=== PATIENT | male | born 1955 | race Caucasian/White ===

== ENCOUNTER 2017-04-02 19:42 | Emergency (ER) | payer OTHER ==
--- NOTE | 2017-04-02 21:06 | ED NURSING NOTES ---
Clinical Report - Nurses [facility] [address] [place] [address] 04/02/2017 19:47 Patient: LYNNETTE TURNER TRIAGE Triage time 1950. Acuity: LEVEL 4. Chief Complaint: BACK PAIN and (pt has chronic back pain, pain is worse today since awoke. shooting pain down rt side from buttocks to knee . Pt was supposed to have cortisone shot on Monday, but there was a problem with order so he didn;t get it. state he has back surg scheduled for 7 weeks from now). 19:52. --20:09 Prachi Deluna R.N. 19:52 04/02/17. BP: 132/80. HR: 60. RR: 18. O2 saturation: 95% on room air. Temp: 98.4 F. Pain level now: 06/01. --20:09 Prachi Deluna R.N. Weight: 99.3 kg stated. Height/Length: 70 inches Per Patient. BMI: 31.4. --20:03 Prachi Deluna R.N. Medications AmLODIPine Besylate Oral, daily. Atenolol Oral 100 mg, daily. Gabapentin Oral (Tablet 600 mg) 1 tablet, 3x a day. Glipizide Oral 5 mg, 2x a day. Lisinopril Oral 20 mg, daily. MetFORMIN HCl Oral (Tablet 1000 mg) 1 tablet, 2x a day. OxyCODONE HCl Oral 15mg , 2 tabs BID as needed, last dose 1600. --20:06 Prachi Deluna R.N. Allergies Actose. --20:04 Prachi Deluna R.N. History Arrived by private vehicle. Historian: patient. Accompanied by son. Primary physician (Regan). SOCIAL HX: Never smoker. No alcohol use or drug use. --20:09 Prachi Deluna R.N. SURGERY HX: Back surgery. Laminectomy at L3, L4 and L5. Right knee surgery. Neck surgery. Discectomy at C6-C7. ( trigger finger rt hand 03/01/17). --20:11 Prachi Deluna R.N. PAST MEDICAL HX: Diabetes mellitus. Hypertension. --20:12 Prachi Deluna R.N. Interventions ID band on patient. To treatment room. --20:09 Prachi Deluna R.N. PHYSICAL ASSESSMENT 19:52. Ambulatory to room. Patient gowned. GENERAL / NEURO / PSYCH: Alert. Oriented X 4. Appears in pain. RESPIRATORY: Respirations not labored. CVS: Capillary refill less than 2 seconds. GI / : Abdomen soft. EXTREMITIES: Limited ROM present. BACK: Limited ROM of the back. Soft tissue tenderness. --20:13 Prachi Deluna R.N. EXTREMITIES: ( walks slowly, uses cane). --20:13 Prachi Deluna R.N. NURSING PROGRESS NOTES 19:52. Cold pack applied. Patient gowned. Head of bed elevated. Reassurance given. Patient identifiers checked. Call light placed in reach. Side rails up. Bed placed in lowest position. Patient ready for evaluation- chart flagged. --20:12 Prachi Deluna R.N. 20:55 04/02/2017 Phenergan (Promethazine HCl) IM 25 mg given. Given in the left ventral gluteus. Sedative warning given to the patient. --21:06 Prachi Deluna R.N. 20:56 04/02/2017 Toradol (Ketorolac Tromethamine) IM 60 mg given. Given in the left ventral gluteus. --21:06 Prachi Deluna R.N. 20:50. ( FSBS= 145, ERPA notified). --21:41 Prachi Deluna R.N. 21:56. ( Pt given IM meds, declined narcotics. ERMD notified. additional meds ordered). --21:47 Prachi Deluna R.N. DISPOSITION / DISCHARGE 21:15. Condition at departure: stable. No learning barriers present. Discharge instructions provided and reviewed with the patient. Reviewed medication(s) (cont home meds). Reviewed referrals (f/u with back doctor). Patient verbalized understanding. Written instructions provided in Malaysian. The patient was discharged home and accompanied by family. He left the Emergency Department on crutches and via private vehicle. Driving (son). MAL COMA SCORE: Mal Coma Scale: 15- eyes open spontaneously (4); best verbal response- oriented x 4 (5); best motor response- obeys commands (6). --21:44 Prachi Deluna R.N. 21:15 04/02/17. BP: 137/74. HR: 60. RR: 18. O2 saturation: 97% on room air. Temp: deferred. Pain level now: 03/01. --21:44 Prachi Deluna R.N. Locked/Released at 04/02/2017 21:48 by Prcahi Deluna R.N.
--- NOTE | 2017-04-02 21:06 | ED CLINICAL REPORT ---
Clinical Report - Physicians/Mid Levels [facility] [address] [place] [address] 04/02/2017 19:47 Patient: LYNNETTE TURNER Time Seen: 21:50 Apr 02 2017. Arrived- By private vehicle. Historian- patient. HISTORY OF PRESENT ILLNESS Chief Complaint: BACK PAIN. Onset was today. It is described as being in the area of the lower lumbar spine. The quality is noted to be "pain" and similar to prior episodes. No bladder dysfunction or bowel dysfunction. Additional history - patient with long history of low back pain, with previous laminectomy, complaining of pain over the last 24 hours. Patienton Monday, the was supposed to havean injection to his low back, howeverthere was some misunderstanding, and he is now scheduled for next Monday, and is scheduled for possible second laminectomy within the next 2 months. Patient with long-standing narcotic use. He has narcotics, however reports, his symptoms are worsening over the last 24 hours. The same pain he has had, low back, at times radiates to r. le. NO urinary sx. NO new fall/ trauma. No abd pain. No h/o aneurysm. Similar symptoms previously: Recent medical care: The patient was seen recently in the office. REVIEW OF SYSTEMS No fever, chills, vaginal discharge, sore throat or cough. No abdominal pain or vomiting. All systems otherwise negative, except as recorded above. PAST HISTORY Has had back injury. He has had prior back pain. Problems: Hypertension. Diabetes Mellitus. Additional Surgeries: Back Surgery. Knee Surgery. Neck Surgery. Medications: AmLODIPine Besylate Oral, daily. Atenolol Oral 100 mg, daily. Gabapentin Oral (Tablet 600 mg) 1 tablet, 3x a day. Glipizide Oral 5 mg, 2x a day. Lisinopril Oral 20 mg, daily. MetFORMIN HCl Oral (Tablet 1000 mg) 1 tablet, 2x a day. OxyCODONE HCl Oral 15mg , 2 tabs BID as needed, last dose 1600. Allergies: Actose. SOCIAL HISTORY Never smoker. No alcohol use or drug use. PHYSICAL EXAM Appearance: Alert. CVS: Heart sounds normal. Pulses normal. Respiratory: No respiratory distress. Breath sounds normal. Abdomen: No mass. Obese. No abdominal tenderness. Back: Vertebral point tenderness. Soft tissue tenderness. Skin: Skin warm. Normal skin color. Neuro: Oriented X 3. Mood/affect normal. No motor deficit. Straight leg raising: negative on the right and negative on the left. PROGRESS AND PROCEDURES Course of Care: Patient with the same pain he has had previously, , began diabetes no new red flags.Pt ambulatory. Inquiring about toradol, which I find reasonable. Pt with good f/u and has meds at home. No new sx, only mild exacerbation of chronic pain. NO acute concern for cauda equina/ spinal cord abscess or mass. There are no risks for spinal epidural abscess or hematoma as patient is without any risk factors such as IVDA or evidence of active infection, no midline tenderness to percussion. Hence I do not feel emergent imaging with an MRI is indicated. However I did discuss with the patient that if these symptoms develop, or if the pain does not resolve an MRI may need to be done outpatient, or in the ED if symptoms worsen acutely or new onset of the above mentioned symptoms develop. 04/02/2017 21:15 BP: 137/74. HR: 60. RR: 18. O2 saturation: 97%. Pain level now: 5/10. Patient is stable. Physical exam findings are improved. Symptoms better. Patient/family counseled. Disposition: Discharged. Condition: good. CLINICAL IMPRESSION Chronic back pain. Diabetes. Hypertension. INSTRUCTIONS Apply ice. No driving or operating machinery. Limit lifting. Your Current Medications: CONTINUE TAKING THE FOLLOWING MEDICATIONS: AmLODIPine Besylate Oral : daily. Atenolol Oral : 100 mg daily. Gabapentin Oral : Tablet 600 mg, 1 tablet 3x a day. Glipizide Oral : 5 mg 2x a day. Lisinopril Oral : 20 mg daily. MetFORMIN HCl Oral : Tablet 1000 mg, 1 tablet 2x a day. OxyCODONE HCl Oral : 15mg 2 tabs BID, Last: 1600, prn. Follow-up: Follow up with a specialist Monday. (Electronically signed by Oralia Ramesh P.A.-C 04/02/2017 21:56)
--- NOTE | 2017-04-02 21:06 | ED ORDER SUMMARY ---
..... Patient: LYNNETTE TURNER OrderSheet [facility] VisitID: [id number] [place] [address] 61y, M Registration Date/Time: 04/02/2017 ORDER SHEET Weight: 99.3 kg (stated) Allergies: Actose GENERAL ORDERS: POC Glucose (20:10 04/02/2017 EKoroleva P.A.-C) (Ack 20:13 DDean R.N.) (21:41 DDean R.N.) MEDICATION ORDERS: Dilaudid IM 2 mg (HIGH ALERT MEDICATION, NOW) (20:29 04/02/2017 EKoroleva P.A.-C) (Ack 20:53 DDean R.N.) (Cancelled: pt [id number] DDean R.N.) (Cancelled: Other21:05 EKoroleva P.A.-C) Phenergan IM 25 mg (HIGH ALERT MEDICATION, NOW) (20:29 04/02/2017 EKoroleva P.A.-C) (Ack 20:53 DDean R.N.) (21:06 DDean R.N.) Toradol IM 60 mg (NOW) (21:06 04/02/2017 DDean R.N. verbal order read back to EKoroleva P.A.-C) (21:06 DDean R.N.) IV FLUIDS: ORDER SHEET NOTES: [Electronically signed by Prachi Deluna R.N. (21:48 04/02/2017)] [Electronically signed by Oralia Ramesh P.A.-C (21:56 04/02/2017)] [Electronically locked/signed by Prachi Deluna R.N. (21:48 04/02/2017)]
--- NOTE | 2017-04-02 21:06 | ED ORDER SUMMARY ---
..... Patient: LYNNETTE TURNER OrderSheet [facility] VisitID: [id number] [place] [address] 61y, M Registration Date/Time: 04/02/2017 ORDER SHEET Weight: 99.3 kg (stated) Allergies: Actose GENERAL ORDERS: POC Glucose (20:10 04/02/2017 EKoroleva P.A.-C) (Ack 20:13 DDean R.N.) (21:41 DDean R.N.) MEDICATION ORDERS: Dilaudid IM 2 mg (HIGH ALERT MEDICATION, NOW) (20:29 04/02/2017 EKoroleva P.A.-C) (Ack 20:53 DDean R.N.) (Cancelled: pt [id number] DDean R.N.) (Cancelled: Other21:05 EKoroleva P.A.-C) Phenergan IM 25 mg (HIGH ALERT MEDICATION, NOW) (20:29 04/02/2017 EKoroleva P.A.-C) (Ack 20:53 DDean R.N.) (21:06 DDean R.N.) Toradol IM 60 mg (NOW) (21:06 04/02/2017 DDean R.N. verbal order read back to EKoroleva P.A.-C) (21:06 DDean R.N.) IV FLUIDS: ORDER SHEET NOTES: [Electronically signed by Prachi Deluna R.N. (21:48 04/02/2017)] [Electronically signed by Oralia Ramesh P.A.-C (21:56 04/02/2017)] [Electronically locked/signed by Prachi Deluna R.N. (21:48 04/02/2017)]
--- NOTE | 2017-04-02 21:56 | ED MED RECONCILIATION SUMMARY ---
Patient: LYNNETTE TURNER Medication Reconciliation Report [facility] VisitID: [id number] [address] [place] [address] 61y, M Registration Date/Time: 04/02/2017 Weight: 99.3 kg Height/Length: 70 in. BMI: 31.4 ALLERGIES: Actose The patient's Home Medications are listed below: CONTINUE TAKING THE FOLLOWING MEDICATIONS: AmLODIPine Besylate Oral, daily Atenolol Oral 100 mg, daily Gabapentin Oral (600 mg) 1 tablet, 3x a day Glipizide Oral 5 mg, 2x a day Lisinopril Oral 20 mg, daily MetFORMIN HCl Oral (1000 mg) 1 tablet, 2x a day OxyCODONE HCl Oral 15mg , 2 tabs BID , last dose: 1600 The source(s) of the original Home Medication information: Not obtained. The following Medications were given to the patient in the Emergency Department: Phenergan [IM] IM 25 mg, administered: 04/02/2017 8:55:00 PM Toradol [IM] IM 60 mg, administered: 04/02/2017 8:56:00 PM The following Medications were prescribed to the patient: None.
--- NOTE | 2017-04-02 21:56 | ED MED RECONCILIATION SUMMARY ---
Patient: LYNNETTE TURNER Medication Reconciliation Report [facility] VisitID: [id number] [address] [place] [address] 61y, M Registration Date/Time: 04/02/2017 Weight: 99.3 kg Height/Length: 70 in. BMI: 31.4 ALLERGIES: Actose The patient's Home Medications are listed below: CONTINUE TAKING THE FOLLOWING MEDICATIONS: AmLODIPine Besylate Oral, daily Atenolol Oral 100 mg, daily Gabapentin Oral (600 mg) 1 tablet, 3x a day Glipizide Oral 5 mg, 2x a day Lisinopril Oral 20 mg, daily MetFORMIN HCl Oral (1000 mg) 1 tablet, 2x a day OxyCODONE HCl Oral 15mg , 2 tabs BID , last dose: 1600 The source(s) of the original Home Medication information: Not obtained. The following Medications were given to the patient in the Emergency Department: Phenergan [IM] IM 25 mg, administered: 04/02/2017 8:55:00 PM Toradol [IM] IM 60 mg, administered: 04/02/2017 8:56:00 PM The following Medications were prescribed to the patient: None.
--- NOTE | 2017-04-02 21:56 | ED MAR SUMMARY ---
..... Medication Administration Record [facility] [address] [place] [address] Patient: LYNNETTE TURNER Visit ID: [id number] 61y, M Weight: 99.3 kg Height/Length: 70 in BMI: 31.4 ALLERGIES: Actose Given 20:55 04/02/2017 Prachi Deluna RUsmanN. Medication Administered: PHENERGAN [IM] (PROMETHAZINE HCL), Dose: 25 mg IM. Medication Ordered: Phenergan IM 25 mg (HIGH ALERT MEDICATION, NOW). Given 20:56 04/02/2017 Prachi Deluna RUsmanN. Medication Administered: TORADOL [IM] (KETOROLAC TROMETHAMINE), Dose: 60 mg IM. Medication Ordered: Toradol IM 60 mg (NOW).
--- NOTE | 2017-04-02 21:56 | ED DISCHARGE INSTRUCTIONS ---
Patient: LYNNETTE TURNER General Instructions [facility] VisitID: [id number] [place] [address] 61y, M Registration Date/Time: 04/02/2017 Chronic back pain. Diabetes. Hypertension. INSTRUCTIONS Apply ice. No driving or operating machinery. Limit lifting. Your Current Medications: CONTINUE TAKING THE FOLLOWING MEDICATIONS: AmLODIPine Besylate Oral : daily. Atenolol Oral : 100 mg daily. Gabapentin Oral : Tablet 600 mg, 1 tablet 3x a day. Glipizide Oral : 5 mg 2x a day. Lisinopril Oral : 20 mg daily. MetFORMIN HCl Oral : Tablet 1000 mg, 1 tablet 2x a day. OxyCODONE HCl Oral : 15mg 2 tabs BID, Last: 1600, prn. Follow-up: Follow up with a specialist Monday. ADDITIONAL INFORMATION Back Pain [Acute Or Chronic] Back pain is usually caused by an injury to the muscles or ligaments of the spine. Sometimes the disks that separate each bone in the spine may bulge and cause pain by pressing on a nearby nerve. Back pain may also appear after a sudden twisting/bending force (such as in a car accident), after a simple awkward movement, or lifting something heavy with poor body positioning. In either case, muscle spasm is often present and adds to the pain. Acute back pain usually gets better in one to two weeks. Back pain related to disk disease, arthritis in the spinal joints or spinal stenosis (narrowing of the spinal canal) can become chronic and last for months or years. Unless you had a physical injury (for example, a car accident or fall) X-rays are usually not ordered for the initial evaluation of back pain. If pain continues and does not respond to medical treatment, x-rays and other tests may be performed at a later time. Home Care: You may need to stay in bed the first few days. But, as soon as possible, begin sitting or walking to avoid problems with prolonged bed rest (muscle weakness, worsening back stiffness and pain, blood clots in the legs). When in bed, try to find a position of comfort. A firm mattress is best. Try lying flat on your back with pillows under your knees. You can also try lying on your side with your knees bent up towards your chest and a pillow between your knees. Avoid prolonged sitting. This puts more stress on the lower back than standing or walking. During the first two days after injury, apply an ICE PACK to the painful area for 20 minutes every 2-4 hours. This will reduce swelling and pain. HEAT (hot shower, hot bath or heating pad) works well for muscle spasm. You can start with ice, then switch to heat after two days. Some patients feel best alternating ice and heat treatments. Use the one method that feels the best to you. You may use acetaminophen (Tylenol) or ibuprofen (Motrin, Advil) to control pain, unless another pain medicine was prescribed. [NOTE: If you have chronic liver or kidney disease or ever had a stomach ulcer or GI bleeding, talk with your doctor before using these medicines.] Be aware of safe lifting methods and do not lift anything over 15 pounds until all the pain is gone. Follow Up with your doctor or this facility if your symptoms do not start to improve after one week. Physical therapy may be needed. [NOTE: If X-rays were taken, they will be reviewed by a radiologist. You will be notified of any new findings that may affect your care.] Get Prompt Medical Attention if any of the following occur: Pain becomes worse or spreads to your legs Weakness or numbness in one or both legs Loss of bowel or bladder control Numbness in the groin or genital area Degenerative Disk Disease Spinal disks are gel-filled cushions between the bones of the spine (vertebrae). The disks act like shock absorbers. Over time, the disks may break down. This disorder is called degenerative disk disease (DDD). DDD can affect the neck or back. It is one of the most common causes of low back pain. It is the leading cause of disability in people under age 45 in the [place]. The pain usually remains localized to the lower back or neck. Muscle spasm is often present and adds to the pain. Disk degeneration is a natural part of aging, although it does not cause pain in most persons. It may also occur as a result of repeated minor injuries due to daily activities, sports, or accidents. It may lead to osteoarthritis of the spine. Back pain related to disk disease may come and go or become chronic and last for months or years. If the disk bulges or ruptures (also called slipped disk or herniated disk), it can put pressure on a nearby spinal nerve and cause neck or back pain that spreads down one arm or leg. X-rays or MRI (magnetic resonance imaging) scan may aid in the diagnosis. For acute pain, treatment consists of anti-inflammatory drugs, muscle relaxants, rest, ice, or heat. Narcotic pain medicines may be needed for short-term treatment of sudden worsening of pain. Due to their addictive potential, narcotics are not advised for long-term pain management. Other types of medicines are preferred. Surgery is usually not used to treat this condition unless there is a complication (such as nerve root compression). Home Care: FOR NECK PAIN: Use a comfortable pillow that supports the head and keeps the spine in a neutral position. The head should not be tilted forward or backward. FOR BACK PAIN: Avoid prolonged sitting. This puts more stress on the lower back than standing or walking. Establishing a regular exercise program to strengthen the supporting muscles of the spine will make it easier to live with DDD. During the first2 days after a flare-up of your pain, apply anice pack to the painful area for 20 minutes every 2-4 hours. This will reduce swelling and pain.Heat (hot shower, hot bath, or heating pad) works well for muscle spasm. You can start with ice, then switch to heat after2 days. Some patients feel best alternating ice and heat treatments. Use the method that feelsbest to you. You may use acetaminophen (Tylenol) or ibuprofen (Motrin, Advil) to control pain, unless another pain medicine was prescribed. [NOTE: If you have chronic liver or kidney disease or ever had a stomach ulcer or GI bleeding, talk with your doctor before using these medicines.] Follow Up with your physician, or as directed by our staff. [NOTE: If x-rays, a CT scan or an MRI scan were taken, they will be reviewed by a radiologist. You will be notified of any new findings that may affect your care.] Return Promptly or contact your doctor if any of the following occur: Increasing back pain New weakness, numbness, or pain in one or both arms or legs Foot drop (foot drags when you walk) Loss of bowel or bladder control Numbness or tingling in the buttock or groin area Unexplained fever over 100.4F (38.0C) You have been given the following additional information: Back Pain (Acute Or Chronic) Degenerative Disk Disease No driving or operating machinery. Limit lifting. (Electronically signed by Oralia Ramesh P.A.-C 04/02/2017 21:56)
--- NOTE | 2017-04-02 21:56 | ED MAR SUMMARY ---
..... Medication Administration Record [facility] [address] [place] [address] Patient: LYNNETTE TURNER Visit ID: [id number] 61y, M Weight: 99.3 kg Height/Length: 70 in BMI: 31.4 ALLERGIES: Actose Given 20:55 04/02/2017 Prachi Deluna RUsmanN. Medication Administered: PHENERGAN [IM] (PROMETHAZINE HCL), Dose: 25 mg IM. Medication Ordered: Phenergan IM 25 mg (HIGH ALERT MEDICATION, NOW). Given 20:56 04/02/2017 Prachi Deluna RUsmanN. Medication Administered: TORADOL [IM] (KETOROLAC TROMETHAMINE), Dose: 60 mg IM. Medication Ordered: Toradol IM 60 mg (NOW).
== END 2017-04-02 21:15 | disposition home or self-care (01) ==
LOC: ED SRH 19:42
DX: M54.5 Low back pain (principal); G89.29 Other chronic pain; E11.9 Type 2 diabetes mellitus without complications; I10 Essential (primary) hypertension; Z79.84 Long term (current) use of oral hypoglycemic drugs; Z79.899 Other long term (current) drug therapy; Z88.8 Allergy status to other drugs, medicaments and biological substances
CPT/HCPCS: 90098